=== PATIENT | female | born 1985 | race American Indian/Alaskan Native ===

== ENCOUNTER 2017-02-04 13:46 | Emergency (ER) | payer MEDICAID ==
[2017-02-04] MEDS ORDERED: MOTRIN PO ONE (20:49)
[2017-02-04] MEDS ORDERED: CLEOCIN IM ONE (20:56)
[2017-02-04] MEDS ORDERED: DECADRON PO ONE (21:02)
[2017-02-04] MEDS ORDERED: DECADRON IV ONE (21:07)
--- NOTE | 2017-02-04 21:08 | Emergency Department Report ---
ED General Adult HPI - General Chief complaint: Sore Throat Stated complaint: SWEATS AND CHILLS Source: patient Mode of arrival: Ambulatory Limitations: No Limitations - History of Present Illness Initial comments: 31 y/o F presents with left ear pain and sore throat for the past 3 days. Pt states that it started off as ear pain and now it is severe pain in the throat. Pt states that she has been experiencing on and off sweats and chills. She states that she had oral sex last week and thought that this may have something to do with it, but states that her partner was not positive for anything that she knows of. Pt admits to fever, chills, sore throat, and left ear pain. Pt denies any cough, congestion, nausea, vomiting, chest pain, SOB, or resp distress at this time. Pt denies at this time and states that her LMP was last week. She denies having a test at this time. Pt states that she has been taking tylenol for the fever with no relief of the pain. -: days(s) (3) Location: mouth Radiation: other (from the Left ear to the throat) Severity scale (0 -10): 10 Quality: constant Consistency: constant Improves with: none Worsens with: none Associated Symptoms: fever/chills. denies: chest pain, cough, headaches, loss of appetite, nausea/vomiting, rash, shortness of breath Treatments Prior to Arrival: NSAID - Related Data Previous Rx's Medication Instructions Recorded Last Taken Type Clindamycin [Clindamycin CAP] 300 mg PO Q8H #30 cap 02/04/17 Unknown Rx predniSONE [Deltasone] 20 mg PO QDAY #5 tab 02/04/17 Unknown Rx Allergies Allergy/AdvReac Type Severity Reaction Status Date / Time Penicillins Allergy Swelling Verified 02/04/17 21:43 ED Review of Systems ROS: Stated complaint: SWEATS AND CHILLS Other details as noted in HPI Constitutional: chills, fever, malaise Eyes: denies: eye pain, eye discharge, vision change ENT: ear pain, throat pain, other (left ear pain and throat pain) Respiratory: denies: cough, shortness of breath, wheezing Cardiovascular: denies: chest pain, palpitations Gastrointestinal: denies: abdominal pain, nausea, vomiting, diarrhea Skin: denies: rash, lesions Neurological: denies: headache, weakness, paresthesias Psychiatric: denies: anxiety, depression ED Past Medical Hx - Past Medical History Previous Medical History?: No - Surgical History Past Surgical History?: Yes Hx Breast Surgery: Yes (left breast lymph node removed) Additional Surgical History: lymph node left breast removed - Social History Smoking Status: Current Every Day Smoker Substance Use Type: Alcohol, Marijuana, Non Opiate Pain - Medications Home Medications: Home Medications Medication Instructions Recorded Confirmed Last Taken Type Clindamycin [Clindamycin CAP] 300 mg PO Q8H #30 cap 02/04/17 Unknown Rx predniSONE [Deltasone] 20 mg PO QDAY #5 tab 02/04/17 Unknown Rx ED Physical Exam - General Limitations: No Limitations General appearance: alert, in no apparent distress - Head Head exam: Present: atraumatic, normocephalic, normal inspection - Eye Eye exam: Present: normal appearance - ENT ENT exam: Present: other (tonsils appear swollen, erythematous, there are bilateral tonsiliths noted at the both tonsils, TM and canals clear bilaterally) - Expanded ENT Exam Expanded Mouth exam: Present: tongue normal, other (no drooling or muffled/hot potato voice; tonsils b/l erythematous and tonsil stones noted on b/l tonsils). Absent : drooling, muffled voice, tongue elevation, laceration Throat exam: Positive: tonsillar erythema, other (tonsillar stones bilaterally) . Negative: R peritonsillar mass, L peritonsillar mass - Neck Neck exam: Present: full ROM, lymphadenopathy (anterior cervical lymph node swelling), other - Respiratory Respiratory exam: Present: normal lung sounds bilaterally. Absent: respiratory distress - Cardiovascular Cardiovascular Exam: Present: normal rhythm, other (elevated heart rate). Absent: systolic murmur, diastolic murmur, rubs, gallop - GI/Abdominal GI/Abdominal exam: Present: soft, normal bowel sounds - Neurological Exam Neurological exam: Present: oriented X3, CN II-XII intact - Skin Skin exam: Present: warm, dry, intact, normal color. Absent: rash ED Course Vital Signs 02/04/17 02/04/17 02/04/17 16:37 16:38 20:30 Temperature 100.1 F H Pulse Rate 101 H 101 H 106 H Respiratory 18 Rate Blood Pressure 119/82 119/83 127/77 Blood Pressure [Right] O2 Sat by Pulse 98 100 97 Oximetry 02/04/17 02/04/17 02/04/17 20:34 22:15 22:37 Temperature 100.8 F H 100.0 F H 99.9 F H Pulse Rate 89 Respiratory Rate Blood Pressure Blood Pressure [Right] O2 Sat by Pulse Oximetry 02/04/17 02/04/17 23:01 23:17 Temperature 99.1 F 99.0 F Pulse Rate 89 90 Respiratory 16 Rate Blood Pressure Blood Pressure 114/72 [Right] O2 Sat by Pulse Oximetry ED Medical Decision Making - Medical Decision Making Rapid strep was conducted on the patient. Pt was given Clindamycin and decadron shot in the ED today, pt is allergic to PCN. Pt was given tylenol PO for the fever. No signs of respiratory distress, no muffled voice, deviation of the uvula, or hot potato voice (no evidence of peritonsillar abscess) was noted on examination- airway was patent and the there was no airway compromise noted. Pt states that she has started to feel better at discharge. Pt's temperature and HR have trended down from when she came in, pt is alert and oriented, airway is patent with no signs of resp distress at this time. Pt denied or test at this time, LMP was 01/29/17. Centor Criteria: 4 points 51% - 53% likelihood of strep. Strep culture is pending at this time. I am going to treat based on the centor criteria. Pt was discharged home on Clindamycin and prednisone, educated to take probiotics with the antibiotic. Pt was discharged in stable condition: alert and oriented, no resp distress, and states she is feeling a lot better than when she arrived. Critical care attestation.: If time is entered above; I have spent that time in minutes in the direct care of this critically ill patient, excluding procedure time. ED Disposition Clinical Impression: Acute bacterial tonsillitis, Tonsillith Disposition: TO HOME OR SELFCARE Is pt being admited?: No Does the pt Need Aspirin: No Condition: Stable Instructions: Clindamycin (By mouth), Tonsillitis (ED) Additional Instructions: Please take medication as prescribed to you today. Please take probiotics with the antibitoic as it may cause you to have diarrhea. Please follow-up with PCP within 3-5 days. Please return to the ER immediately if your symptoms are worsening such as: difficulty breathing, SOB, resp distress, drooling, or muffled voice. Prescriptions: Clindamycin [Clindamycin CAP] 300 mg PO Q8H #30 cap predniSONE [Deltasone] 20 mg PO QDAY #5 tab Referrals: [facility] [Outside] - 3-5 Days [facility] [Outside] - 3-5 Days MARY MACDONALD MD [Staff Physician] - 3-5 Days PRIMARY CAREMD [Primary Care Provider] - 3-5 Days Forms: Work/School Release Form(ED)
[2017-02-04] MEDS ORDERED: TYLENOL PO ONE (21:38)
[2017-02-04 23:18] VITALS: BP 114/72
== END 2017-02-04 23:26 | disposition home or self-care (01) ==
LOC: ED 13:46
DX: J03.90 Acute tonsillitis, unspecified (principal); F12.10 Cannabis abuse, uncomplicated; F17.200 Nicotine dependence, unspecified, uncomplicated; Z88.0 Allergy status to penicillin
CPT/HCPCS: 87116; 87430; 96372; 96374; 99283; J1100

== ENCOUNTER 2020-08-12 09:09 | Emergency (ER) | payer MEDICAID ==
--- NOTE | 2020-08-12 09:45 | Emergency Department Report ---
ED N/V/D HPI - General Chief complaint: Nausea/Vomiting/Diarrhea Stated complaint: NAUSE Time Seen by Provider: 08/12/20 09:43 Source: patient, EMS Mode of arrival: Ambulatory Limitations: No Limitations - History of Present Illness Initial comments: 35-year-old female denies any past medical history. She states that she woke up at 3 AM with vomiting diarrhea and abdominal cramps. States that she lost count of how many times she vomited. And she has had 4 loose stools. Patient states that her 4-year-old daughter had similar symptoms 2 days ago and has recovered. Patient denies cough fever chest pain or shortness of breath. She appears pale and uncomfortable. MD complaint: nausea, vomiting, diarrhea -: Sudden (3:45 AM) Description of Vomiting: food contents, watery Description of Diarrhea: water Associated Abdominal Pain: Yes (Diffuse abdominal cramps) Location: diffuse Radiation: none Pain Scale: 6 Quality: cramping Consistency: constant Improves with: none Worsens with: none Context: sick contacts Associated Symptoms: malaise, nausea/vomiting. denies: myalgias, chest pain, cough, diaphoresis, fever/chills, headaches, loss of appetite, dysuria, shortness of breath, syncope, weakness - Related Data Previous Rx's Medication Instructions Recorded Last Taken Type Clindamycin [Clindamycin CAP] 300 mg PO Q8H #30 cap 02/04/17 Unknown Rx predniSONE [Deltasone] 20 mg PO QDAY #5 tab 02/04/17 Unknown Rx Metoclopramide [Reglan] 10 mg PO TID PRN #12 tab 08/12/20 Unknown Rx Allergies Allergy/AdvReac Type Severity Reaction Status Date / Time Penicillins Allergy Swelling Verified 02/04/17 21:43 ED Review of Systems ROS: Stated complaint: NAUSE Other details as noted in HPI Comment: All other systems reviewed and negative Constitutional: denies: chills, fever, weakness Eyes: denies: eye pain, eye discharge, vision change ENT: denies: ear pain, throat pain, dental pain, hearing loss, epistaxis Respiratory: denies: cough, wheezing Cardiovascular: denies: chest pain, palpitations, dyspnea on exertion Gastrointestinal: abdominal pain, nausea, vomiting, diarrhea. denies: jyothi temesis, melena Genitourinary: denies: dysuria Musculoskeletal: denies: back pain, arthralgia Skin: denies: rash, lesions Neurological: denies: headache Psychiatric: as per HPI ED Past Medical Hx - Past Medical History Previous Medical History?: No - Surgical History Past Surgical History?: Yes Hx Breast Surgery: Yes (left breast lymph node removed) Additional Surgical History: lymph node left breast removed - Social History Smoking Status: Current Every Day Smoker Substance Use Type: Alcohol, Marijuana - Medications Home Medications: Home Medications Medication Instructions Recorded Confirmed Last Taken Type Clindamycin [Clindamycin CAP] 300 mg PO Q8H #30 cap 02/04/17 Unknown Rx predniSONE [Deltasone] 20 mg PO QDAY #5 tab 02/04/17 Unknown Rx Metoclopramide [Reglan] 10 mg PO TID PRN #12 tab 08/12/20 Unknown Rx ED Physical Exam - General Limitations: No Limitations - Head Head exam: Present: atraumatic - Eye Eye exam: Present: normal appearance - ENT ENT exam: Present: normal exam - Neck Neck exam: Present: normal inspection - Respiratory Respiratory exam: Present: normal lung sounds bilaterally. Absent: respiratory distress, wheezes - Cardiovascular Cardiovascular Exam: Present: regular rate, normal heart sounds - GI/Abdominal GI/Abdominal exam: Present: soft, normal bowel sounds. Absent: distended, tenderness, guarding - Extremities Exam Extremities exam: Present: normal inspection - Neurological Exam Neurological exam: Present: alert, oriented X3 - Psychiatric Psychiatric exam: Present: normal affect - Skin Skin exam: Present: warm, dry, intact, normal color ED Course Vital Signs 08/12/20 08/12/20 09:20 13:00 Temperature 98.3 F Pulse Rate 78 61 Respiratory 22 16 Rate Blood Pressure 116/74 Blood Pressure 104/71 [Left] O2 Sat by Pulse 100 99 Oximetry - Reevaluation(s) Reevaluation #1: 08/12/20 11:26 Patient resting comfortably had no vomiting since she has been in the emergency room. Urinalysis pending 1 L of normal saline infused patient in no distress. Reevaluation #2: 08/12/20 12:33 Patient now with multiple episodes of vomiting Reglan 10 mg IV and Compazine 5 mg IV ordered will give another additional 1 L of fluids Reevaluation #3: 08/12/20 13:38 Vomiting resolved patient states she feels much better and is ready to go home ED Medical Decision Making - Lab Data Result diagrams: 08/12/20 09:26 08/12/20 09:26 - Medical Decision Making 35-year-old female started with nausea,vomiting and abdominal cramps around 3 3:45 AM this morning. in the emergency room she received 2 L of fluid along with Zofran Reglan and Compazine she is now feeling better and vomiting has resolved no complaint of abdominal pain. She was in contact with a sick family member, her 4-year-old daughter she had similar symptoms 2 days ago. Laboratory findings no significant abnormality she had a negative test and no signs of urinary tract infection. All findings reviewed with patient the plan i s for her to be discharged home with Reglan and to follow-up with primary care doctor - Differential Diagnosis Gastroenteritis food poisoning viral gastroenteritis, nausea vomiting Critical Care Time: No Critical care attestation.: If time is entered above; I have spent that time in minutes in the direct care of this critically ill patient, excluding procedure time. ED Disposition Clinical Impression: Nausea vomiting and diarrhea, Viral gastroenteritis Disposition: TO HOME OR SELFCARE Is pt being admited?: No Does the pt Need Aspirin: No Condition: Stable Instructions: Viral Gastroenteritis, Adult, Diarrhea, Adult, [id number] Additional Instructions: Take Reglan 1 tablet 3 times a day as needed for nausea and vomiting. Start with a bland diet of helen abelardo Sprite broth stay away from dairy products. Drink at least 8 to 10 glasses of water or Pedialyte or Gatorade for the next 2 days. Follow-up with your primary care doctor in 2 to 3 days or return to the emergency room for any worsening symptoms such as fever abdominal pain or inability to keep any liquids down. Prescriptions: Metoclopramide [Reglan] 10 mg PO TID PRN #12 tab PRN Reason: Nausea And Vomiting Referrals: PRIMARY CAREMD [Primary Care Provider] - 3-5 Days JARET ZENDEJAS MD [Staff Physician] - 3-5 Days Time of Disposition: 13:47
[2020-08-12] MEDS ORDERED: ONDANSETRON 4 MG/2 ML INJ ONE (09:46)
[2020-08-12] MEDS ORDERED: SODIUM CHLORIDE 0.9% 1000 ML 1,000 ML ONE (09:46)
[2020-08-12] MEDS ORDERED: SODIUM CHLORIDE 0.9% 1000 ML 1,000 ML IV ONE ×2 (09:51→12:34)
[2020-08-12] MEDS ORDERED: ONDANSETRON 4 MG/2 ML INJ IM ONE ×2 (09:51→10:11)
[2020-08-12 10:19] LABS: Basophils % (Auto) 0.2 % (0.0-1.8); Eosinophils % (Auto) 0.1 % (0.0-4.3); Hematocrit 34.5 % (30.3-42.9); Hemoglobin 11.2 gm/dl (10.1-14.3); Lymphocytes # (Auto) 1.2 K/mm3 (1.2-5.4); Lymphocytes % (Auto) 14.4 % (13.4-35.0); Mean Corpuscular HGB Conc 33 % (30-34); Mean Corpuscular Volume 78 fl (79-97); Monocytes # (Auto) 0.2 K/mm3 (0.0-0.8); Monocytes % (Auto) 2.7 % (0.0-7.3); Platelet Count 274 K/mm3 (140-440); Red Blood Count 4.45 M/mm3 (3.65-5.03); Red Cell Distribution Width 16.8 % (13.2-15.2)
[2020-08-12 10:31] LABS: Alanine Aminotransferase 8 units/L (7-56); Albumin 4.7 g/dL (3.9-5); Blood Urea Nitrogen 11 mg/dL (7-17); Calcium 9.7 mg/dL (8.4-10.2); Hemolysis Index 1
[2020-08-12 10:34] LABS: BUN/Creatinine Ratio 16
[2020-08-12] MEDS ORDERED: METOCLOPRAMIDE 10 MG/2 ML INJ IV ONE (12:31)
[2020-08-12] MEDS ORDERED: PROCHLORPERAZINE EDISYLATE 10 MG/2 ML VIAL IV ONE (12:32)
[2020-08-12 12:33] LABS: Bilirubin,Urine NEG (Negative); Blood,Urine MOD (Negative); Color,Urine Yellow (Yellow); Mucus,Urine 3+ /HPF; Urobilinogen,Urine < 2.0 mg/dL (<2.0)
[2020-08-12 12:34] LABS: RBC,Urine > 182.0 /HPF (0.0-6.0)
[2020-08-12 12:35] LABS: HCG Qualitative,Urine Negative (Negative)
[2020-08-12 13:01] VITALS: BP 104/71
== END 2020-08-12 14:00 | disposition home or self-care (01) ==
LOC: ED 09:09
DX: A08.4 Viral intestinal infection, unspecified (principal); F17.200 Nicotine dependence, unspecified, uncomplicated; F12.10 Cannabis abuse, uncomplicated; Z98.890 Other specified postprocedural states; Z79.899 Other long term (current) drug therapy
CPT/HCPCS: 36415; 80053; 81001; 81025; 83690; 85025; 96361; 96372; 96374; 96375; 99284; J0780; J2405; J2765; J7030